=== PATIENT | male | born 1960 | race Caucasian/White ===

== ENCOUNTER → 2017-09-13 | Outpatient (CLI) | payer BC ==
--- NOTE | 2017-09-13 14:55 | US ---
EXAMINATION TYPE: US abdomen complete DATE OF EXAM: 09/13/2017 COMPARISON: CT Chest CLINICAL HISTORY: K80.20 calculus of gallbladder without cholecystit. Pt states known gallstones foun d on previous CT EXAM MEASUREMENTS: Liver Length: 16.1 cm Gallbladder Wall: 0.3 cm CBD: 0.4 cm Spleen: 12.5 cm Right Kidney: 12.3 x 4.6 x 5.7 cm Left Kidney: 13.4 x 6.4 x 5.7 cm Pancreas: Obscured by bowel gas Liver: Appeared wnl, left lobe difficult to visualize Gallbladder: Multiple gallstones at neck, move slightly when pt rolled to LLD position Evidence for sonographic Hui's sign: No CBD: wnl Spleen: Multiple granulomas scattered throughout Right Kidney: Multiple small reflectors scattered throughout cortex Left Kidney: Multiple small reflectors scattered throughout cortex Upper IVC: wnl Abd Aorta: Ectatic, distal portion gassed out IMPRESSION: 1. Cholelithiasis. 2. There may be some punctate nonobstructing renal stones within the bilateral renal cortices.
== END | disposition home or self-care (01) ==
LOC: RADUSWWP 07:28
PROVIDERS: ATTEND Internal Medicine
DX: K80.20 Calculus of gallbladder without cholecystitis without obstruction (principal)
CPT/HCPCS: 76700

== ENCOUNTER → 2017-10-11 | Outpatient (CLI) | payer BC ==
--- NOTE | 2017-10-11 10:47 | NM ---
EXAMINATION TYPE: NM hepatobiliary w EF DATE OF EXAM: 10/11/2017 COMPARISON: NONE HISTORY: Calculus of gallbladder K80.20 TECHNIQUE: After the intravenous administration of 5.27 mCi Tc 99m Mebrofenin hepatobiliary scintigra phy is performed. Immediate images post injection. FINDINGS: There is satisfactory initial accumulation of tracer by the liver. The gallbladder is visualized wit hin 10 minutes. The small bowel activity is noted within 12 minutes. At one hour 8 ounces of oral e nsure plus is given to mimic CCK and gallbladder ejection fraction is calculated at 61 %, in the norm al range. Therefore there is no scintigraphic evidence of cystic or common bile duct obstruction to suggest acute cholecystitis or gallbladder dyskinesia. IMPRESSION: Exam is within normal limits.
== END | disposition home or self-care (01) ==
LOC: RADNMMAIN 06:52
PROVIDERS: ATTEND Internal Medicine
DX: K80.20 Calculus of gallbladder without cholecystitis without obstruction (principal)
CPT/HCPCS: 78226; A9537